=== PATIENT | male | born 1995 | race Caucasian/White ===

== ENCOUNTER 2017-09-22 19:03 | Emergency (ER) | payer OTHER ==
[~2017-09-22] VITALS: Ht 177.8 cm; Wt 92.6 kg
[2017-09-22 19:08] VITALS: BP 141/84
== END 2017-09-22 20:11 | disposition home or self-care (01) ==
LOC: ED 20:05
DX: L20.84 Intrinsic (allergic) eczema (principal)
CPT/HCPCS: 99283

== ENCOUNTER 2017-11-08 20:29 | Inpatient (IN) | payer OTHER ==
[~2017-11-08] VITALS: Ht 177.8 cm; Wt 90.2 kg
[2017-11-09] MEDS ORDERED: DIAZEPAM 5 MG/ML, 2ML IV STA (00:04)
[2017-11-09 00:30] VITALS: BP 139/82
[2017-11-09 00:30] LABS: BASOPHILS # (AUTO) 0.08 x10^3/uL (0-0.3); BASOPHILS % (AUTO) 1 % (0-1); EOSINOPHILS # (AUTO) 0.73 x10^3/uL (0-0.8); EOSINOPHILS % (AUTO) 8 % (1-7); LYMPHOCYTES # (AUTO) 2.24 x10^3/uL (1-6.1); LYMPHOCYTES % (AUTO) 25 % (22-44); MD NO; MEAN CORPUSCULAR HEMOGLOBIN 29.5 pg (27.5-34.5); MEAN CORPUSCULAR HGB CONC 34.5 g/dL (33.2-36.2); MEAN CORPUSCULAR VOLUME 85.5 fL (81-97); MEAN PLATELET VOLUME 8.9 fL (7.4-10.4); MONOCYTES # (AUTO) 0.78 x10^3/uL (0-1.4); MONOCYTES % (AUTO) 9 % (2-9); NEUTROPHILS # (AUTO) 5.07 x10^3/uL (1.8-8.0); NEUTROPHILS % (AUTO) 57 % (42-75); PLATELET COUNT 227 x10^3/uL (130-400); RED BLOOD COUNT 5.35 x10^6/uL (4.38-5.82); RED CELL DISTRIBUTION WIDTH 13.1 % (9.4-14.8)
[2017-11-09] MEDS ORDERED: ONDANSETRON 2MG/ML, 2ML IVPush ONE (00:30)
[2017-11-09] MEDS ORDERED: ONDANSETRON 2MG/ML, 2ML IVPush PRN (00:30)
[2017-11-09] MEDS ORDERED: SODIUM CHLORIDE FLUSH 10ML SYR IVF ONE (00:30)
[2017-11-09 00:42] VITALS: BP 139/82
[2017-11-09 00:42] LABS: ALANINE AMINOTRANSFERASE 31 U/L (12-78); ALBUMIN 3.9 g/dL (3.4-5.0); ANION GAP 7 mmol/L (5-15); CALCIUM 8.9 mg/dL (8.5-10.1); CHLORIDE 107 mmol/L (98-107); CREATININE 0.86 mg/dL (0.7-1.3)
[2017-11-09 00:44] LABS: ALKALINE PHOSPHATASE 98 U/L (45-117); BILIRUBIN,TOTAL 0.6 mg/dL (0.2-1.0); TOTAL PROTEIN 7.4 g/dL (6.4-8.2)
[2017-11-09] MEDS: MORPHINE SULFATE 4 MG/ML, 1ML IVPush PRN ×3 (01:27→07:55)
[2017-11-09 07:11] VITALS: BP 143/98
[2017-11-09] MEDS ORDERED: OXYcodone/APAP 5/325MG TABLET PO PRN (11:00)
[2017-11-09] MEDS ORDERED: OXYC1TAB7 PO (11:32)
[2017-11-09 12:07] VITALS: BP 145/94
== END 2017-11-09 12:30 | disposition home or self-care (01) | DRG 552 ==
LOC: ED 23:13 → EDIP 23:57 → 4NOR 11-09 00:30
PROVIDERS: ADMIT Orthopaedic Surgery Orthopaedic Surgery of the Spine; ATTEND Orthopaedic Surgery Orthopaedic Surgery of the Spine
DX: S12.400A Unspecified displaced fracture of fifth cervical vertebra, initial encounter for closed fracture (principal); F12.90 Cannabis use, unspecified, uncomplicated; M40.292 Other kyphosis, cervical region; W19.XXXA Unspecified fall, initial encounter; J45.909 Unspecified asthma, uncomplicated; Y93.89 Activity, other specified; Y92.89 Other specified places as the place of occurrence of the external cause; Y99.8 Other external cause status
CPT/HCPCS: 36415; 72020; 72125; 72141; 72146; 80053; 80307; 85025; 99285; J3360